=== PATIENT | female | born 2000 | race Caucasian/White ===

== ENCOUNTER 2024-03-12 08:33 | Emergency (ER) | payer OTHER, SELFPAY ==
[2024-03-12 08:56] VITALS: BP 121/73
[2024-03-12 10:53] VITALS: BP 137/85
[2024-03-12 11:31] VITALS: BP 114/69
[2024-03-12 11:41] LABS: % Basophils 0.4 % (0-2); % Eosinophils 0.8 % (0-6); % Immature Granulocytes 0.4 % (0-0.5); % Lymphocytes 26.1 % (20.5-51.1); % Neutrophils 67.3 % (42.2-75.2); Absolute Eosinophils 0.1 10^3/uL (0-0.7); Absolute Monocytes 0.4 10^3/uL (0.1-0.6); Absolute Neutrophils 5.2 10^3/uL (1.4-6.5); Hematocrit 39.1 % (37.0-47.0); Hemoglobin 13.4 g/dL (12.0-16.0); Mean Corp Hgb Conc. 34.3 g/dL (33.0-37.0); Mean Corpuscular Hgb 31.2 pg (27.0-31.0); Mean Corpuscular Volume 91.1 fL (81.0-99.0); Mean Platelet Volume 9.4 fL (7.4-10.4); Nucleated Red Blood Cells % 0 %; Platelet Count 243 10^3/uL (130-400); Red Blood Cell Count 4.29 10^6/uL (4.20-5.40); White Blood Cell Count 7.7 10^3/uL (4.8-10.8)
[2024-03-12 11:42] LABS: Urine Albumin Negative (Neg - Trace); Urine Bilirubin Negative (Negative); Urine Character Clear (Clear); Urine Color Yellow; Urine Glucose Negative (Negative); Urine Ketone Negative (Negative); Urine Leukocyte 2+ (Negative); Urine Nitrite Negative (Negative); Urine Occult Blood 2+ (Negative); Urine Specific Gravity 1.015 (<1.030); Urine Urobilinogen Negative (Neg - 1+)
[2024-03-12 11:51] LABS: HCG, Serum Qualitative Screen Negative
[2024-03-12 11:53] LABS: ALT (SGPT) 12 U/L (0-35); AST (SGOT) 21 U/L (14-36); Albumin 4.9 g/dl (3.5-5.0); Alkaline Phosphatase 48 U/L (38-126); Blood Urea Nitrogen 14 mg/dl (7-17); Calcium 9.6 mg/dl (8.4-10.2); Carbon Dioxide 22 mmol/L (22-30); Chloride 104 mmol/L (98-107); Glucose 84 mg/dl (70-99); Lipase 111 U/L (23-300); Sodium 138 mmol/L (135-145); Total Bilirubin 0.6 mg/dl (0.2-1.3); Total Protein 7.4 g/dl (6.3-8.2); Urine Squamous Cell >30 /LPF (Few); eGFR > 60.00
[2024-03-12 11:54] LABS: Urine Bacteria Moderate (Negative)
[2024-03-12 11:55] LABS: Urine Red Blood Cell 0-2 /HPF (0-2); Urine White Cell 26-30 /HPF (0-5)
[2024-03-12 12:00] VITALS: BP 121/68
--- NOTE | 2024-03-12 12:03 | ED.GENMED ---
History of Present Illness
General
Chief Complaint: Abdominal Pain
Source: patient
Exam Limitations: none
Time Seen by Provider: 03/12/24 11:36
Nursing documentation reviewed up to this point in time: agreed with
History of Present Illness
History of Present Illness:
24-year-old female with no reported chronic medical issues presents to the emergency room for evaluation of abdominal pain. Patient reports onset of symptoms a week ago and have been constant since that time. She reports pain initially in the
right side then migrated towards the suprapubic region and ultimately settled in the left lower quadrant. She reports a sharp pain worse with movement. No relieving factors noted�she tried Advil, Tylenol, Gas-X, PPI without improvement. She
denies any associated nausea, vomiting, diarrhea, constipation. She has not had any dysuria, hematuria, change in urine frequency. She has not any vaginal bleeding or vaginal discharge. She denies having had similar symptoms in the past. She
denies any history of abdominal surgeries. She was seen in urgent care initially was referred to the ER for evaluation. Last menstrual period was approximately 4 weeks ago. She says her hCG was negative at urgent care.
Review of Systems
Review of Systems
All Other Systems: ROS reviewed and negative except as documented in HPI and ROS
Constitutional: Denies fever or chills
Respiratory: Denies trouble breathing
Cardiac: Denies chest pain
ABD/GI: Reports abdominal pain; Denies nausea, vomiting, diarrhea or constipated
: Denies dysuria, frequency, flank pain, bleeding or discharge
Musculoskeletal: Denies neck pain or back pain
Neurological: Denies dizzy or headache
Phy Exam
Physical Exam
Physical Exam:
General: Awake, alert, oriented x3; no acute distress
Head: Normocephalic, atraumatic
Eyes: Conjunctiva normal, sclera anicteric
Throat: Airway intact, handling secretions, moist mucous membranes
Neck: Trachea midline, supple without meningismus
Lungs: Clear to auscultation bilaterally, no wheezing, rales, rhonchi
Heart: Regular rate and rhythm, no murmurs, gallops, or rubs
Abd: Soft, non distended, mildly tender across the lower abdomen actually somewhat worse on the right than the left
Back: No CVA tenderness
Neuro: No gross deficits
Skin: no rash
Extremities: Warm and well-perfused with no edema
Scores
Heart Failure Risk
Heart Failure Risk Score: Not Applicable
Heart Score for Chest Pain Patients
STEMI patient?: Not applicable
Withdrawal Assessment of Alcohol
Withdrawal Assessment Completed?: Not applicable
Course
Orders/Labs/Results
Orders:
Orders
03/12/24 09:00
Test Result ONCE
03/12/24 11:32
Complete Blood Count/With Diff Urgent
Comprehensive Metabolic Panel Urgent
HCG, Serum Qualitative Screen Urgent
Lipase Urgent
Urinalysis Reflex To Culture Urgent
Date Specimen was Collected: 03/12/24
Time Specimen was Collected: 11:03
Urine Microscopic Reflex Cult Urgent
Urine Culture Urgent
MAIRA Source: U
Specimen Description:
Date Specimen was Collected: 03/12/24
Time Specimen was Collected: 11:03
03/12/24 11:54
CT Abd/pelvis W Iv Cont Urgent
Comment:
Reason For Exam: LLQ abd pain
Abnormal Lab Results
03/12/24
11:32
MCH 31.2 H pg
(27.0-31.0)
Ur Occult Blood Reflex 2+ A
(Negative)
Leukocyte Esterase Rfl 2+ A
(Negative)
Urine WBC (Reflex) 26-30 A /HPF
(0-5)
Urine Bacteria (Reflex) Moderate A
(Negative)
03/12/24 11:32
03/12/24 11:32
Vital Signs
Initial and Last Documented VS:
Initial Vital Signs
Temp Pulse Resp BP Pulse Ox
37.1 C 90 18 121/73 100
03/12/24 08:56 03/12/24 08:56 03/12/24 08:56 03/12/24 08:56 03/12/24 08:56
Last Documented Vital Signs
Temp Pulse Resp BP Pulse Ox
37.1 C 73 16 114/69 100
03/12/24 08:56 03/12/24 11:31 03/12/24 11:35 03/12/24 11:31 03/12/24 11:31
MDM/Problems Addressed
Differential Diagnosis Includes:
Ovarian cyst, nephrolithiasis, UTI, appendicitis, diverticulitis, abdominal wall strain
MDM/Problems Addressed:
24-year-old female presents for evaluation of lower abdominal pain for the past week as described above. Vitals and exam as above. Will place an IV check labs including a CBC and a CMP. Check urinalysis. Check hCG. Sent for CT abdomen pelvis.
Offered pain control, patient declined. Reassess after the above.
Labs reviewed: CBC and CMP unremarkable. hCG negative. Urinalysis appears contaminated but does show bacteria and pyuria�no urinary symptoms�culture sent off. Hold antibiotics for now but if no alternate etiology to her symptoms identified would
err towards treatment. Awaiting CT.
CT shows normal-appearing appendix. There is some slight stranding and edema along the proximal sigmoid colon suspected to represent mild colitis. Clinical reassessment patient's vitals have been stable. Will plan to treat with antibiotics for
sigmoid colitis; this will also cover for abnormal urinalysis. No clear indication for hospital admission at this point�pain is mild, vitals are stable and no signs of sepsis. Patient feels comfortable this plan. All questions answered.
*Radiology
Radiology exam reviewed: radiology read reviewed
*Pulse Oximetry
Patient hypoxic: no
*Critical Care Note
Total Time (30-74mins, 75-104mins- exclusive of procedures): Not Applicable
Data Reviewed
Source: patient and significant other
ED Attending Note
-
Portions of this chart may have been created with voice recognition software.� Occasional wrong word or��sound alike� substitutions may have occurred due to the inherent limitations of voice recognition software.
Discharge Plan
Departure
Referrals:
Foster Sanchez CRNP [Family Provider] -
Interventions
Interventions:
*Risk Screen - Suicide Last Done: 03/12/24 08:56
*General Assessment Last Done: 03/12/24 08:56
*Neglect/Abuse Screening Last Done: 03/12/24 08:56
*ED COVID-19 Vaccine History Last Done: 03/12/24 08:56
XB-Hheenu-Mscvtfobae Assessment Last Done: 03/12/24 11:35
Discharge Date and Time
Print Language: ANDORRAN
[2024-03-12 13:00] VITALS: BP 119/82
[2024-03-12] MEDS: AUGMENTIN 875 MG/125 MG 1 TABLET PO (14:43)
== END 2024-03-12 14:48 | disposition home or self-care (01) ==
LOC: EMR 08:33
PROVIDERS: Emergency Medicine; Registered Nurse; EMERGENCY PHYSICIAN Emergency Medicine; FAMILY PHYSICIAN Nurse Practitioner Family
DX: K52.9 Noninfective gastroenteritis and colitis, unspecified (principal)
CPT/HCPCS: 99284; 74177; 80053; 81003; 81015; 83690; 84703; 85025; 87086; Q9967